=== PATIENT | male | born 1945 | race Caucasian/White ===

== ENCOUNTER 2022-04-11 07:25 | Inpatient (IN) | payer MEDICARE, OTHER, SELFPAY ==
[2022-04-11] VITALS (10 sets, daily range): BP systolic 115–170; BP diastolic 60–100; PULSE 68–83; RESP 16–20; TEMP 36.6–37.7; O2SAT 95–98; BMI 26.8
--- NOTE | 2022-04-11 08:02 | CRLHL7_ITS ---
For Patients: As a result of the Century Cures Act, medical imaging exams and procedure reports are released immediately into your electronic medical record. You may view this report before your referring provider. If you have questions, please contact your health care provider. INDICATION: RUQ PAIN COMPARISON: none TECHNIQUE: Real time bronson scale imaging and color Doppler analysis was performed of the right upper quadrant. FINDINGS: Multiple echogenic and shadowing stones are present within the gallbladder along with layering sludge. In addition, there is a 1 cm hyperechoic and shadowing stone within the gallbladder neck. The gallbladder lumen is distended. The gallbladder wall measures 3.5 millimeters. Common bile duct measures 9.5 millimeters. Intrahepatic biliary duct dilation. No intrahepatic mass. No ascites. Pancreas not visualized due to overlying bowel gas. Right kidney normal and measures 12.0 cm. Atherosclerotic changes in the aorta. IVC normal. IMPRESSION: Distended gallbladder with mild gallbladder wall thickening and numerous hyperechoic stones and sludge within the gallbladder lumen including a 1 cm stone in the gallbladder neck. Intrahepatic and extrahepatic biliary duct dilation. Cholecystitis is suspected. Dictated by Mode Aden MD @ 04/11/2022 9:12:48 AM (Electronically Signed)
--- NOTE | 2022-04-11 08:22 | ED_ITS ---
HPI - General Adult General Chief complaint: Abdominal Pain Stated complaint: stomach pain, bloody urine Time Seen by Provider: 04/11/22 07:56 Source: patient Mode of arrival: ambulatory Limitations: no limitations History of Present Illness HPI narrative: [age] year male coming in today complaining of abdominal pain. Pain is located in the epigastric region. Patient states he has had this pain for sever al years. Comes and goes. General last couple of hours and then goes away. He states that he was seen in the hospital 1 time for this in the past and they thought he was having a heart attack but he was not. Looking through his records, this episode appear to have been in September of 2016. He states he has never had an EGD done. He is not on any antacids. He has never had gallbladder surgery. Today he comes in because the pain started 8 last night it has been going on for 12 hours. He did not sleep because it was so uncomfortable. He denies any nausea or vomiting. No fevers or chills. No diarrhea. No urinary symptoms such as increased frequency, urgency or dysuria. He states that in the past sometimes he can put his fingers down his throat and either burp or vomit a little bit and that makes his discomfort better. He denies night sweats, unintentional weight loss. He denies early satiety. He states that when he goes out to eat the risk of the pain coming is greater than when he eats at home. He did go out to eat last night and had macaroni and vegetables he states. His past medical history significant for eczema and a hiatal hernia. He takes no medications. He has never had surgery. Rarely drinks alcohol, no tobacco use. Both parents had a history of coronary artery disease. Related Data Home Medications Medication Instructions Recorded Confirmed No Known Home Medications 04/11/22 04/11/22 Allergies Allergy/AdvReac Type Severity Reaction Status Date / Time Food Sensitivities AdvReac Mild Uncoded 04/11/22 07:41 Review of Systems Status of ROS: Reports: 10 or more systems reviewed and unremarkable except as noted in History and below [facility] Social History Smoking Status: Never smoker Do you use any of these nicotine containing products: None Second hand tobacco smoke exposure: No How often do you have a drink containing alcohol: never How often do you have six or more drinks on one occasion: Never AUDIT-C Alcohol total score: 0 Non-prescribed substance use: denies use service: No Exam Narrative: Exam Narrative: Thin, elderly patient in no acute distress. Alert and oriented. Answers questions appropriately. Mood and affect are appropriate. Thoughts are goal oriented and rational. No tangential or magical thinking noted. Patient speaks in full sentences without needing to catch his breath. Speech is not slurred or pressured. Patient does not appear ill or toxic. Patient is very slightly jaundiced. HEENT: Normocephalic atraumatic. Pupils are equally round reactive to light. Extraocular muscles are intact. Conjunctivae are moist with mild icterus noted. Moist mucous membranes. Posterior pharynx is normal. Neck is soft without any lymphadenopathy or thyromegaly. No masses are appreciated. Cardiovascular: Heart is regular rate and rhythm S1 and S2 are present without any murmurs. Lungs: Clear to auscultation bilaterally no wheezes rhonchi or rales are appreciated. Patient takes deep breaths without any discomfort. Abdomen: Soft and nondistended with normal bowel sounds. No guarding or rebou nd. No masses or organomegaly appreciated. He does have mild epigastric and right upper quadrant discomfort. Extremities: Bilateral lower extremities show trace edema. Skin: Well perfused without any obvious rashes. Const: Vital Signs, click to edit/add: Vital Signs - 24 hr 04/11/22 07:34 04/11/22 08:00 Temperature 97.8 F Pulse Rate [Pulse Oximeter] 83 Respiratory Rate 16 Blood Pressure [Le ft Upper Arm] 170/100 H Pulse Oximetry 97 98 Oxygen Delivery Me thod Room Air Course Course Hospital Course: EKG, read by me, shows normal sinus rhythm with a left axis deviation. Labs showed elevated white count, elevated CRP, elevated LFTs, elevated lipase. Ultrasound results below consistent with gallstones, cholecystitis, and biliary duct dilation. Did discuss with our surgeon Dr. Berger, who recommended treat patient be transferred for an ERCP. Unfortunately we called every [facility] and there were no available beds. In the meantime we did start IV fluids and IV Zosyn. We Therefore proceeded with an MRCP which did not show any common bile duct dilation, knowing that small stones may be missed. At this time Dr. Berger did accept the patient for admission and further management. Vital Signs Vital signs: Initial Vital Signs Temperature 97.8 F 04/11/22 07:34 Temperature Source Temporal Artery Scan 04/11/22 07:34 Pulse Rate 83 04/11/22 07:34 Respiratory Rate 16 04/11/22 07:34 Blood Pressure 170/100 H 04/11/22 07:34 Blood Pressure Mean 123 04/11/22 07:34 Blood Pressure Position Sitting 04/11/22 07:34 Pulse Oximetry 97 04/11/22 07:34 Oxygen Delivery Method 04/11/22 07:34 Vital Signs Temperature 97.8 F 04/11/22 07:34 Pulse Rate 83 04/11/22 07:34 Respiratory Rate 16 04/11/22 07:34 Blood Pressure 170/100 H 04/11/22 07:34 Pulse Oximetry 97 04/11/22 07:34 Oxygen Delivery Method 04/11/22 07:34 Temperature 97.8 F 04/11/22 07:34 Pulse Rate 83 04/11/22 07:34 Respiratory Rate 16 04/11/22 07:34 Blood Pressure 170/100 H 04/11/22 07:34 Pulse Oximetry 98 04/11/22 08:00 Oxygen Delivery Method 04/11/22 07:34 Medical Decision Making MDM Narrative Medical decision making narrative: 76-year-old male with cholecystitis. Patient will be admitted for further management. Lab Data Lab results reviewed: Yes I reviewed the patient's lab results Labs: Lab Results 04/11/22 04/11/22 04/11/22 Range/Units 08:25 08:25 08:25 WBC 15.94 H (4.50-11.00) K/uL RBC 5.01 (4.30-5.90) m/uL Hgb 15.6 (13.5-17.5) gm/dL Hct 46.9 (37.0-53.0) % MCV 94 (80-100) fL MCH 31 (26-34) pg MCHC 33 (32-36) gm/dL RDW Coeff of Balwinder 13.2 (11.5-15.5) % Plt Count 153 (140-440) K/uL Neut % (Auto) 89.2 H (42.0-72.0) % Lymph % (Auto) 1.9 L (20-44) % Wheeler % (Auto) 8.1 (0.0-11.0) % Eos % (Auto) 0.0 (0.0-7.0) % Baso % (Auto) 0.1 (0.0-3.0) % Neut # (Auto) 14.20 H (1.7-7.0) K/uL Lymph # (Auto) 0.30 L (0.90-2.90) K/uL Wheeler # (Auto) 1.30 H (0.00-0.90) K/UL Eos # (Auto) 0.00 (0.00-0.50) K/uL Baso # (Auto) 0.00 (0.00-0.30) K/uL Abs Immat Gran (auto) 0.10 (0.00-0.30) K/uL Imm/Tot Granulo (auto) 0.7 % ESR 53 H (2-15) mm/hr Sodium 137 (135-149) mmol/L Potassium 5.3 H (3.6-5.1) mmol/L Chloride 103 (96-114) mmol/L Carbon Dioxide 26 (20-32) mmol/L BUN 15 (7-30) mg/dL Creatinine 0.5 (0.5-1.5) mg/dL Estimated Creat Clear 65.90 Estimated GFR 106 ml/min Glucose 118 H (60-115) mg/dL Lactate (0.5-1.9) mmol/L Calcium 8.8 (8.4-10.6) mg/dL Total Bilirubin 6.6 H (0.1-1.5) mg/dL Direct Bilirubin 5.0 H (0.0-0.5) mg/dL AST 449 H (12-35) U/L ALT 369 H (4-50) U/L Alkaline Phosphatase 410 H (40-150) U/L Troponin I (0.01-0.04) ng/mL C-Reactive Protein 3.2 H (0.5-1.0) mg/dL Total Protein 8.7 H (6.0-8.3) g/dL Albumin 4.3 (3.3-5.0) g/dL Lipase 4413 H (23-300) U/L Urine Color (Yellow) Urine Appearance (Clear) Urine pH (5.0-8.5) Ur Specific [place] (1.000-1.030) Urine Protein (Negative) Urine Glucose (UA) (Negative) Urine Ketones (Negative) Urine Blood (Negative) Urine Nitrite (Negative) Urine Bilirubin (Negative) Urine Urobilinogen (0.2-1.0) Ur Leukocyte Esterase (Negative) Urine RBC (0-2) Urine WBC (0-5) Ur Squamous Epith Cells (None-Few) Amorphous Sediment (None) Other Sediment (None) Urine Bacteria (None) Urine Mucus (None) SARS-CoV-2 (PCR) (Negative) 04/11/22 04/11/22 04/11/22 Range/Units 08:25 08:25 08:30 WBC (4.50-11.00) K/uL RBC (4.30-5.90) m/uL Hgb (13.5-17.5) gm/dL Hct (37.0-53.0) % MCV (80-100) fL MCH (26-34) pg MCHC (32-36) gm/dL RDW Coeff of Balwinder (11.5-15.5) % Plt Count (140-440) K/uL Neut % (Auto) (42.0-72.0) % Lymph % (Auto) (20-44) % Wheeler % (Auto) (0.0-11.0) % Eos % (Auto) (0.0-7.0) % Baso % (Auto) (0.0-3.0) % Neut # (Auto) (1.7-7.0) K/uL Lymph # (Auto) (0.90-2.90) K/uL Wheeler # (Auto) (0.00-0.90) K/UL Eos # (Auto) (0.00-0.50) K/uL Baso # (Auto) (0.00-0.30) K/uL Abs Immat Gran (auto) (0.00-0.30) K/uL Imm/Tot Granulo (auto) % ESR (2-15) mm/hr Sodium (135-149) mmol/L Potassium (3.6-5.1) mmol/L Chloride (96-114) mmol/L Carbon Dioxide (20-32) mmol/L BUN (7-30) mg/dL Creatinine (0.5-1.5) mg/dL Estimated Creat Clear Estimated GFR ml/min Glucose (60-115) mg/dL Lactate 2.1 H (0.5-1.9) mmol/L Calcium (8.4-10.6) mg/dL Total Bilirubin (0.1-1.5) mg/dL Direct Bilirubin (0.0-0.5) mg/dL AST (12-35) U/L ALT (4-50) U/L Alkaline Phosphatase (40-150) U/L Troponin I < 0.01 L (0.01-0.04) ng/mL C-Reactive Protein (0.5-1.0) mg/dL Total Protein (6.0-8.3) g/dL Albumin (3.3-5.0) g/dL Lipase (23-300) U/L Urine Color Burwell A (Yellow) Urine Appearance Clear (Clear) Urine pH 5.0 (5.0-8.5) Ur Specific [place] >= 1.030 (1.000-1.030) Urine Protein 2+ A (Negative) Urine Glucose (UA) Trace A (Negative) Urine Ketones 1+ A (Negative) Urine Blood 2+ A (Negative) Urine Nitrite Negative (Negative) Urine Bilirubin 3+ A (Negative) Urine Urobilinogen >=8.0 (0.2-1.0) Ur Leukocyte Esterase Negative (Negative) Urine RBC 2-5 A (0-2) Urine WBC 2-5 (0-5) Ur Squamous Epith Cells Few (None-Few) Amorphous Sediment Moderate A (None) Other Sediment FEW YEAST (None) Urine Bacteria Moderate A (None) Urine Mucus Moderate A (None) SARS-CoV-2 (PCR) (Negative) 04/11/22 Range/Units 09:41 WBC (4.50-11.00) K/uL RBC (4.30-5.90) m/uL Hgb (13.5-17.5) gm/dL Hct (37.0-53.0) % MCV (80-100) fL MCH (26-34) pg MCHC (32-36) gm/dL RDW Coeff of Balwinder (11.5-15.5) % Plt Count (140-440) K/uL Neut % (Auto) (42.0-72.0) % Lymph % (Auto) (20-44) % Wheeler % (Auto) (0.0-11.0) % Eos % (Auto) (0.0-7.0) % Baso % (Auto) (0.0-3.0) % Neut # (Auto) (1.7-7.0) K/uL Lymph # (Auto) (0.90-2.90) K/uL Wheeler # (Auto) (0.00-0.90) K/UL Eos # (Auto) (0.00-0.50) K/uL Baso # (Auto) (0.00-0.30) K/uL Abs Immat Gran (auto) (0.00-0.30) K/uL Imm/Tot Granulo (auto) % ESR (2-15) mm/hr Sodium (135-149) mmol/L Potassium (3.6-5.1) mmol/L Chloride (96-114) mmol/L Carbon Dioxide (20-32) mmol/L BUN (7-30) mg/dL Creatinine (0.5-1.5) mg/dL Estimated Creat Clear Estimated GFR ml/min Glucose (60-115) mg/dL Lactate (0.5-1.9) mmol/L Calcium (8.4-10.6) mg/dL Total Bilirubin (0.1-1.5) mg/dL Direct Bilirubin (0.0-0.5) mg/dL AST (12-35) U/L ALT (4-50) U/L Alkaline Phosphatase (40-150) U/L Troponin I (0.01-0.04) ng/mL C-Reactive Protein (0.5-1.0) mg/dL Total Protein (6.0-8.3) g/dL Albumin (3.3-5.0) g/dL Lipase (23-300) U/L Urine Color (Yellow) Urine Appearance (Clear) Urine pH (5.0-8.5) Ur Specific [place] (1.000-1.030) Urine Protein (Negative) Urine Glucose (UA) (Negative) Urine Ketones (Negative) Urine Blood (Negative) Urine Nitrite (Negative) Urine Bilirubin (Negative) Urine Urobilinogen (0.2-1.0) Ur Leukocyte Esterase (Negative) Urine RBC (0-2) Urine WBC (0-5) Ur Squamous Epith Cells (None-Few) Amorphous Sediment (None) Other Sediment (None) Urine Bacteria (None) Urine Mucus (None) SARS-CoV-2 (PCR) Negative SARS-CoV-2 (Negative) Imaging Data MRCP: Attestation: I have reviewed the pertinent imaging results. Radiologist's impression: TECHNIQUE: MRI of the abdomen was performed with the following sequences: Coronal, axial, and sagittal T2 without fat saturation, axial in and opposed phase, coronal 2D and 3D MRCP series. COMPARISON: Abdominal ultrasound from 04/11/2022. FINDINGS: Lower chest: Large hiatal hernia, with the majority of the stomach herniated above the diaphragmatic hiatus and organoaxial volvulus of the stomach. Liver: The signal intensity is normal. No significant dropout between in- and opposed phase to suggest steatosis. No T2 hyperintense lesions. Mild intrahepatic biliary dilation. Gallbladder and bile ducts: The gallbladder is hydropic and contains innumerable small T2 filling defects, compatible with gallstones. No wall thickening. Inflam matory changes surround the gallbladder and a small amount of fluid tracks along the right inferior hepatic lobe. Filling defect in the gallbladder neck could be an impacted stone. The cystic duct and common bile duct are normal in caliber. The common bile duct measures approximately 3-4 mm (14/33). No focal stricture or filling defects to suggest choledocholithiasis. Spleen: Unremarkable. Small splenule along the anterior spleen. Pancreas: The pancreas appears mildly atrophic and shows areas of fatty atrophy. The pancreatic duct is normal in caliber. Tiny T2 hyperintense foci adjacent to the main pancreatic duct (14/27) could be dilated side branches. Adrenal glands: Unremarkable. No nodules. Kidneys and Ureters: Normal size. Small cortical T2 hyperintense lesions are suggestive of cysts. No hydronephrosis. Lymph Nodes and Retroperitoneum: Unremarkable. Vasculature: Unremarkable. GI tract: Included segments are normal in caliber. Peritoneum/Abdominal Wall: Unremarkable. No free air or free fluid. Bones: No abnormal marrow signal. IMPRESSION: 1. Hydropic gallbladder with innumerable gallstones and surrounding inflammatory changes, concerning for acute cholecystitis in the appropriate clinical setting. 2. Normal caliber common bile duct without stricture or findings to suggest choledocholithiasis. 3. 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 US - abdomen: Attestation: I have reviewed the pertinent imaging results. Radiologist's impression: Real time bronson scale imaging and color Doppler analysis was performed of the right upper quadrant. FINDINGS: Multiple echogenic and shadowing stones are present within the gallbladder along with layering sludge. In addition, there is a 1 cm hyperechoic and shadowing stone within the gallbladder neck. The gallbladder lumen is distended. The gallbladder wall measures 3.5 millimeters. Common bile duct measures 9.5 millimeters. Intrahepatic biliary duct dilation. No intrahepatic mass. No ascites. Pancreas not visualized due to overlying bowel gas. Right kidney normal and measures 12.0 cm. Atherosclerotic changes in the aorta. IVC normal. IMPRESSION: Distended gallbladder with mild gallbladder wall thickening and numerous hyperechoic stones and sludge within the gallbladder lumen including a 1 cm stone in the gallbladder neck. Intrahepatic and extrahepatic biliary duct dilation. Cholecystitis is suspected. Discharge Plan Discharge Patient Disposition: Admitted As Inpatient Condition: Stable Prescriptions: No Action No Known Home Medications Follow Up/Referrals: Mode Luo MD [Primary Care Provider] -
[2022-04-11 08:41] LABS: Lactate* 2.1 mmol/L (0.5-1.9)
[2022-04-11 08:42] LABS: Basophils Percent Auto 0.1 % (0.0-3.0); Hematocrit 46.9 % (37.0-53.0); Hemoglobin* 15.6 gm/dL (13.5-17.5); Immature Granulocytes Pct Auto 0.7 %; Lymphocytes Percent Auto 1.9 % (20-44); Mean Corpuscular HGB Conc 33 gm/dL (32-36); Mean Corpuscular Hemoglobin 31 pg (26-34); Mean Corpuscular Volume 94 fL (80-100); Monocytes Percent Auto 8.1 % (0.0-11.0); Neutrophils Percent Auto 89.2 % (42.0-72.0); Platelet Count* 153 K/uL (140-440); RDW Coefficient of Variation % 13.2 % (11.5-15.5); Red Blood Count 5.01 m/uL (4.30-5.90); White Blood Count* 15.94 K/uL (4.50-11.00)
[2022-04-11 08:45] LABS: Slide Review Reflex No
[2022-04-11 08:57] LABS: Appearance Urine Clear (Clear); Bilirubin Urine 3+ (Negative); Blood Urine 2+ (Negative); Color Urine Orange (Yellow); Glucose Urine Trace (Negative); Ketones Urine 1+ (Negative); Leukocyte Esterase Urine Negative (Negative); Nitrite Urine Negative (Negative); Protein Urine 2+ (Negative); Specific Gravity Urine >= 1.030 (1.000-1.030); Urobilinogen Urine >=8.0 (0.2-1.0)
[2022-04-11 08:58] LABS: Amorphous Sediment Urine Moderate; Bacteria Urine Moderate; Mucus Urine Moderate; Other Sediment Urine FEW YEAST; Squamous Epithelial Cell Urine Few (None-Few)
[2022-04-11 09:08] LABS: Albumin* 4.3 g/dL (3.3-5.0); Chloride* 103 mmol/L (96-114); Sodium* 137 mmol/L (135-149)
[2022-04-11 09:09] LABS: Potassium* 5.3 mmol/L (3.6-5.1)
[2022-04-11 09:11] LABS: Creatinine* 0.5 mg/dL (0.5-1.5); Estimated Glomerular Filt Rate 106 ml/min
[2022-04-11 09:12] LABS: Alanine Aminotransferase* 369 U/L (4-50); Alkaline Phosphatase* 410 U/L (40-150); Aspartate Amino Transferase* 449 U/L (12-35); Bilirubin Total* 6.6 mg/dL (0.1-1.5); Blood Urea Nitrogen* 15 mg/dL (7-30); Calcium* 8.8 mg/dL (8.4-10.6); Carbon Dioxide* 26 mmol/L (20-32); Glucose* 118 mg/dL (60-115); Total Protein* 8.7 g/dL (6.0-8.3)
[2022-04-11 09:15] LABS: C Reactive Protein* 3.2 mg/dL (0.5-1.0)
[2022-04-11 09:26] LABS: Erythrocyte SedimentationRate* 53 mm/hr (2-15)
[2022-04-11 09:51] LABS: Lipase* 4413 U/L (23-300)
[2022-04-11] MEDS: 0.9 % SODIUM CHLORIDE 1000 ml 1,000 ML IV ×2 (10:20→17:21)
[2022-04-11 10:23] LABS: SARS PCR* Negative SARS-CoV-2 (Negative)
--- NOTE | 2022-04-11 10:23 | ED.NURSE ---
IV in right ac not infusing or flushing. IV dc'd and new IV placed in right hand without difficulty.
[2022-04-11 10:24] LABS: Troponin I* < 0.01 ng/mL (0.01-0.04)
--- NOTE | 2022-04-11 10:25 | CRLHL7_ITS ---
For Patients: As a result of the Century Cures Act, medical imaging exams and procedure reports are released immediately into your electronic medical record. You may view this report before your referring provider. If you have questions, please contact your health care provider. INDICATION: Gallstones. TECHNIQUE: MRI of the abdomen was performed with the following sequences: Coronal, axial, and sagittal T2 without fat saturation, axial in and opposed phase, coronal 2D and 3D MRCP series. COMPARISON: Abdominal ultrasound from 04/11/2022. FINDINGS: Lower chest: Large hiatal hernia, with the majority of the stomach herniated above the diaphragmatic hiatus and organoaxial volvulus of the stomach. Liver: The signal intensity is normal. No significant dropout between in- and opposed phase to suggest steatosis. No T2 hyperintense lesions. Mild intrahepatic biliary dilation. Gallbladder and bile ducts: The gallbladder is hydropic and contains innumerable small T2 filling defects, compatible with gallstones. No wall thickening. Inflammatory changes surround the gallbladder and a small amount of fluid tracks along the right inferior hepatic lobe. Filling defect in the gallbladder neck could be an impacted stone. The cystic duct and common bile duct are normal in caliber. The common bile duct measures approximately 3-4 mm (14/33). No focal stricture or filling defects to suggest choledocholithiasis. Spleen: Unremarkable. Small splenule along the anterior spleen. Pancreas: The pancreas appears mildly atrophic and shows areas of fatty atrophy. The pancreatic duct is normal in caliber. Tiny T2 hyperintense foci adjacent to the main pancreatic duct (14/27) could be dilated side branches. Adrenal glands: Unremarkable. No nodules. Kidneys and Ureters: Normal size. Small cortical T2 hyperintense lesions are suggestive of cysts. No hydronephrosis. Lymph Nodes and Retroperitoneum: Unremarkable. Vasculature: Unremarkable. GI tract: Included segments are normal in caliber. Peritoneum/Abdominal Wall: Unremarkable. No free air or free fluid. Bones: No abnormal marrow signal. IMPRESSION: 1. Hydropic gallbladder with innumerable gallstones and surrounding inflammatory changes, concerning for acute cholecystitis in the appropriate clinical setting. 2. Normal caliber common bile duct without stricture or findings to suggest choledocholithiasis. 3. 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 Dictated by Stevie Salgado MD @ 04/11/2022 1:27:48 PM (Electronically Signed)
[2022-04-11] MEDS: PIPERACILLIN/TAZOBACTAM 3.375 GM in 0.9 % SODIUM CHLORIDE Mini-bag 100 ML IVPB ×3 (10:33→22:28)
--- NOTE | 2022-04-11 15:12 | P.IMHP_ITS ---
Hospitalist- H&P: HPI History of Present Illness Date Seen: 04/11/22 Chief complaint: stomach pain, bloody urine Narrative: Karlos Aguilar is a 76 year old male who presented to the ED for evaluation of epigastric abdominal pain. He endorsed nausea and vomiting. Denies chest pain, fever, sob. In the ED Abdominal US showed Distended gallbladder with mild gallbladder wall thickening and numerous hyperechoic stones and sludge within the gallbladder lumen including a 1 cm stone in the gallbladder neck. Intrahepatic and extrahepatic biliary duct dilation. Cholecystitis is suspected.MRCP Hydropic gallbladder with innumerable gallstones and surrounding inflammatory changes, concerning for acute cholecystitis in the appropriate clinical setting. Normal caliber common bile duct without stricture or findings to suggest choledocholithiasis. 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 Notable labs in ED included WBC 15, potassium 5.3, lactate 2.1, Tbili 6.6, AST 449, ALT 369, Alk phos 410, Lipase 4413. UA positive for bacteria. In the ED his case was discussed with General Surgery. He was given IVF, started on zosyn and admitted for further evaluation. Past Medical History: Diagnosis Date ? Allergic rhinitis, cause unspecified ? ? Colon polyp 01/09/2010 ? Colonoscopy 12/2009 polyps repeat in 3 years ? Diverticulosis of colon (without mention of hemorrhage) ? ? Osteoarthrosis, unspecified whether generalized or localized, unspecified site ? Past Surgical History: Procedure Laterality Date ? CIRCUMCISION ? ? ? COLONOSCOPY DIAGNOSTIC ? 02/23/2013 ? Colonoscopy 02/2013 normal repeat in 5 years ? COLONOSCOPY SCREENING ? 01/04/10 ? Colonoscopy 12/2009 polyps repeat in 3 years Allergies Allergen Reactions ? [address] Hives and Rash ? Medications have been reviewed by me and are current to the best of my knowledge and ability. ? Social History Substance Use Topics ? Smoking status: Never Smoker ? Smokeless tobacco: Never Used ? Alcohol use Yes PFSH PFSH Medical History (Updated 04/11/22 @ 16:18 by Valentin Mancera MD) Arthritis Eczema Surgical History (Updated 04/11/22 @ 16:17 by Valentin Mancera MD) S/P routine circumcision Social History (Updated 04/11/22 @ 16:17 by Valentin Mancera MD) Narrative: Patient is retired. He denies smoking Or drinking alcohol. Highest level of school completed/degree received: Professional degree (MD, DANNY, DVM, DDS) Smoking Status: Never smoker Do you use any of these nicotine containing products: None Second hand tobacco smoke exposure: No How often do you have a drink containing alcohol: never How often do you have six or more drinks on one occasion: Never AUDIT-C Alcohol total score: 0 Non-prescribed substance use: denies use Caffeine: No service: No Meds Home Medications and Allergies Home Medications Medication Instructions Recorded Confirmed Type No Known Home Medications 04/11/22 04/11/22 History Allergies Allergy/AdvReac Type Severity Reaction Status Date / Time Food Sensitivities AdvReac Mild Uncoded 04/11/22 07:41 Exam Const: Vital Signs, click to edit/add: Vital Signs - 24 hr 04/11/22 07:34 04/11/22 08:00 Temperature 97.8 F Pulse Rate [Pulse Oximeter] 83 Respiratory Rate 16 Blood Pressure [Le ft Upper Arm] 170/100 H Pulse Oximetry 97 98 Oxygen Delivery Me thod Room Air Hospitalist - H&P: Result Labs Labs: Short CBC 04/11/22 Range/Units 08:25 WBC 15.94 H (4.50-11.00) K/uL Hgb 15.6 (13.5-17.5) gm/dL Hct 46.9 (37.0-53.0) % Plt Count 153 (140-440) K/uL BMP 04/11/22 08:25 Sodium 137 Potassium 5.3 H Chloride 103 Carbon Dioxide 26 BUN 15 Creatinine 0.5 Glucose 118 H Calcium 8.8 Cardiac Enzymes 04/11/22 Range/Units 08:25 Troponin I < 0.01 L (0.01-0.04) ng/mL Liver Function 04/11/22 Range/Units 08:25 Total Bilirubin 6.6 H (0.1-1.5) mg/dL Direct Bilirubin 5.0 H (0.0-0.5) mg/dL AST 449 H (12-35) U/L ALT 369 H (4-50) U/L Alkaline Phosphatase 410 H (40-150) U/L Albumin 4.3 (3.3-5.0) g/dL Urine 04/11/22 Range/Units 08:30 Urine Color [place] A (Yellow) Urine Appearance Clear (Clear) Urine pH 5.0 (5.0-8.5) Ur Specific [place] >= 1.030 (1.000-1.030) Urine Protein 2+ A (Negative) Urine Glucose (UA) Trace A (Negative) Assessment and Plan Assessment and plan (1) Acute gallstone pancreatitis: Status: Acute Plan Karlos Aguilar is a 76 year old male who presented to the ED for evaluation of epigastric abdominal pain. In the ED Abdominal US showed Distended gallbladder with mild gallbladder wall thickening and numerous hyperechoic stones and sludge within the gallbladder lumen including a 1 cm stone in the gallbladder neck. Intrahepatic and extrahepatic biliary duct dilation. Cholecystitis is suspected.MRCP Hydropic gallbladder with innumerable gallstones and surrounding inflammatory changes, concerning for acute cholecystitis in the appropriate clinical setting. Normal caliber common bile duct without stricture or findings to suggest choledocholithiasis. 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 Notable labs in ED included WBC 15, potassium 5.3, lactate 2.1, Tb eva 6.6, AST 449, ALT 369, Alk phos 410, Lipase 4413. UA positive for bacteria. In the ED his case was discussed with General Surgery. He was given IVF, started on zosyn and admitted for further evaluation. Assessment 1. Acute gallstone pancreatitis 2. sepsis secondary to Acute Cholecystitis (fever; leukocytosis, elevated lactate) 3. Presumed acute choledocholithiasis (likely passed stone) 4. Hyperkalemia 5. Lactic acidosis; mild 6. Hyperkalemia 7. R/o UTI 8. Hiatal Hernia with organoaxial volvulus of the stomach 9. Hx of HTN Plan -IVF -continue zosyn -IV PPI -antiemetics -NPO -serial lactate -repeat potassium -Urine culture add on -prn IV hydralazine -Preop evaluation -EKG -AM labs cbc, bmp, liver profile, INR, Lipase -currently not medically optimized for surgery pending electrolyte abnormalities; will need reassesment in AM code-full dvt ppx scd
--- NOTE | 2022-04-11 16:11 | PM.GSCN ---
History of Present Illness Consult details Date Seen: 04/11/22 Consult date: 04/11/22 Narrative: 76-year-old male presented to emergency room with epigastric abdominal pain, and I was asked by Dr. Acosta to see him in consultation. Patient states that he started to experience epigastric pain last night at 8 in the evening. The pain was described as sharp and did not radiate anywhere. He denies any nausea or vomiting. This was the second attack of pain in the last week. Patient states that he had similar episodes of pain in the past several years. The pain was usually brought on by eating at the restaurants, Eating larger meals. He sometimes would relieve his pain by burping or vomiting. Yesterday, he also described having chills. In the emergency room he was found to have an elevated WBC of 15.9. His liver function tests were also elevated. Total bili 6.6, direct bili 5, AST 449, ALT 369, alkaline phosphatase 410, lipase 4413. He underwent a gallbladder ultrasound that showed multiple stones in the gallbladder and a larger stone in the gallbladder neck. The gallbladder wall was measuring at 3-3.5 mm and the gallbladder was described as distended. Patient's common bile duct was described at 9.5 mm. patient then underwent MRCP that showed normal caliber common bile duct. He was incidentally noted to have a large hiatal hernia with are going to axial volvulus of the stomach with majority of the stomach located in the patient's chest. Patient states that his pain is now resolved. Review of Systems Narrative: General: no fevers HENT: no problems swallowing CV: no shortness of breath Resp: no cough GI: See above : + hematuria in the last week Skin: no new rashes Musculoskeletal: no back pain Neuro: no muscle weakness Psyche: no depression, no anxiety PFSH PFSH Medical History (Updated 04/11/22 @ 16:18 by Valentin Mancera MD) Arthritis Eczema Surgical History (Updated 04/11/22 @ 16:17 by Valentin Mancera MD) S/P routine circumcision Social History (Updated 04/11/22 @ 16:17 by Valentin Mancera MD) Narrative: Patient is retired. He denies smoking Or drinking alcohol. Highest level of school completed/degree received: Professional degree (, DANNY, DVM, DDS) Smoking Status: Never smoker Do you use any of these nicotine containing products: None Second hand tobacco smoke exposure: No How often do you have a drink containing alcohol: never How often do you have six or more drinks on one occasion: Never AUDIT-C Alcohol total score: 0 Non-prescribed substance use: denies use Caffeine: No service: No Meds Home Medications and Allergies Home Medications Medication Instructions Recorded Confirmed Type No Known Home Medications 04/11/22 04/11/22 History Allergies Allergy/AdvReac Type Severity Reaction Status Date / Time Food Sensitivities AdvReac Mild Uncoded 04/11/22 07:41 Exam Narrative: Exam Narrative: General appearance: Alert, cooperative, and in no distress. Patient is slightly jaundiced. Pulmonary: Chest symmetric, lungs clear bilaterally Cardiovascular Heart: Regular rate and rhythm, S1, S2, no murmurs/rubs/gallops Gastrointestinal Abdominal: soft, not tender, not distended, negative Barnes sign. Skin: Normal skin color, texture, and turgor. No rashes or lesions. Psychiatric: Alert, cooperative, normal affect. Const: Vital Signs, click to edit/add: Vital Signs - 24 hr 04/11/22 07:34 04/11/22 08:00 04/11/22 08:00 Temperature 97.8 F 97.8 F Pulse Rate [Pulse Oximeter] 83 83 Respiratory Rate 16 16 Blood Pressure [Le ft Upper Arm] 170/100 H 170/100 H Pulse Oximetry 97 98 98 Oxygen Delivery Me thod Room Air Room Air 04/11/22 09:00 04/11/22 10:00 04/11/22 11:00 Temperature Pulse Rate [Pulse Oximeter] Respiratory Rate Blood Pressure [Le ft Upper Arm] 153/86 H 140/76 H 133/74 Pulse Oximetry Oxygen Delivery Me thod 04/11/22 12:00 04/11/22 13:00 Temperature Pulse Rate [Pulse Oximeter] Respiratory Rate Blood Pressure [Le ft Upper Arm] 133/72 131/78 Pulse Oximetry Oxygen Delivery Me thod Results Labs Labs: Abnormal lab results 04/11/22 04/11/22 04/11/22 Range/Units 08:25 08:25 08:25 WBC 15.94 H (4.50-11.00) K/uL Neut % (Auto) 89.2 H (42.0-72.0) % Lymph % (Auto) 1.9 L (20-44) % Neut # (Auto) 14.20 H (1.7-7.0) K/uL Lymph # (Auto) 0.30 L (0.90-2.90) K/uL Jerome # (Auto) 1.30 H (0.00-0.90) K/UL ESR 53 H (2-15) mm/hr Potassium 5.3 H (3.6-5.1) mmol/L Glucose 118 H (60-115) mg/dL Lactate (0.5-1.9) mmol/L Total Bilirubin 6.6 H (0.1-1.5) mg/dL Direct Bilirubin 5.0 H (0.0-0.5) mg/dL AST 449 H (12-35) U/L ALT 369 H (4-50) U/L Alkaline Phosphatase 410 H (40-150) U/L Troponin I (0.01-0.04) ng/mL C-Reactive Protein 3.2 H (0.5-1.0) mg/dL Total Protein 8.7 H (6.0-8.3) g/dL Lipase 4413 H (23-300) U/L Urine Color (Yellow) Urine Protein (Negative) Urine Glucose (UA) (Negative) Urine Ketones (Negative) Urine Blood (Negative) Urine Bilirubin (Negative) Urine RBC (0-2) Amorphous Sediment (None) Urine Bacteria (None) Urine Mucus (None) 04/11/22 04/11/22 04/11/22 Range/Units 08:25 08:25 08:30 WBC (4.50-11.00) K/uL Neut % (Auto) (42.0-72.0) % Lymph % (Auto) (20-44) % Neut # (Auto) (1.7-7.0) K/uL Lymph # (Auto) (0.90-2.90) K/uL Jerome # (Auto) (0.00-0.90) K/UL ESR (2-15) mm/hr Potassium (3.6-5.1) mmol/L Glucose (60-115) mg/dL Lactate 2.1 H (0.5-1.9) mmol/L Total Bilirubin (0.1-1.5) mg/dL Direct Bilirubin (0.0-0.5) mg/dL AST (12-35) U/L ALT (4-50) U/L Alkaline Phosphatase (40-150) U/L Troponin I < 0.01 L (0.01-0.04) ng/mL C-Reactive Protein (0.5-1.0) mg/dL Total Protein (6.0-8.3) g/dL Lipase (23-300) U/L Urine Color [place] A (Yellow) Urine Protein 2+ A (Negative) Urine Glucose (UA) Trace A (Negative) Urine Ketones 1+ A (Negative) Urine Blood 2+ A (Negative) Urine Bilirubin 3+ A (Negative) Urine RBC 2-5 A (0-2) Amorphous Sediment Moderate A (None) Urine Bacteria Moderate A (None) Urine Mucus Moderate A (None) Diabetes panel 04/11/22 Range/Units 08:25 Sodium 137 (135-149) mmol/L Potassium 5.3 H (3.6-5.1) mmol/L Chloride 103 (96-114) mmol/L Carbon Dioxide 26 (20-32) mmol/L BUN 15 (7-30) mg/dL Creatinine 0.5 (0.5-1.5) mg/dL Glucose 118 H (60-115) mg/dL Calcium 8.8 (8.4-10.6) mg/dL AST 449 H (12-35) U/L ALT 369 H (4-50) U/L Alkaline Phosphatase 410 H (40-150) U/L Total Protein 8.7 H (6.0-8.3) g/dL Albumin 4.3 (3.3-5.0) g/dL Calcium panel 04/11/22 Range/Units 08:25 Calcium 8.8 (8.4-10.6) mg/dL Albumin 4.3 (3.3-5.0) g/dL Pituitary panel 04/11/22 Range/Units 08:25 Sodium 137 (135-149) mmol/L Potassium 5.3 H (3.6-5.1) mmol/L Chloride 103 (96-114) mmol/L Carbon Dioxide 26 (20-32) mmol/L BUN 15 (7-30) mg/dL Creatinine 0.5 (0.5-1.5) mg/dL Glucose 118 H (60-115) mg/dL Calcium 8.8 (8.4-10.6) mg/dL Adrenal panel 04/11/22 Range/Units 08:25 Sodium 137 (135-149) mmol/L Potassium 5.3 H (3.6-5.1) mmol/L Chloride 103 (96-114) mmol/L Carbon Dioxide 26 (20-32) mmol/L BUN 15 (7-30) mg/dL Creatinine 0.5 (0.5-1.5) mg/dL Glucose 118 H (60-115) mg/dL Calcium 8.8 (8.4-10.6) mg/dL Total Bilirubin 6.6 H (0.1-1.5) mg/dL AST 449 H (12-35) U/L ALT 369 H (4-50) U/L Alkaline Phosphatase 410 H (40-150) U/L Total Protein 8.7 H (6.0-8.3) g/dL Albumin 4.3 (3.3-5.0) g/dL All other labs normal. Assessment and Plan Assessment and plan (1) Cholecystitis, acute: Status: Acute Plan 76-year-old male admitted to the hospital with epigastric pain that is most likely due to acute cholecystitis and possible gastric volvulus. I discussed with the patient his laboratory and imaging findings. Patient's liver function tests, gallbladder ultrasound and is abdominal MRI are suggestive of acute cholecystitis, possible choledocholithiasis, and gallstone pancreatitis. Patient is currently pain free which would be consistent with passing a gallstone. However, patient was also noted to have a large hiatal hernia with majority of his stomach being in the chest. Patient does not have any other images in our system. There is an abdominal CT report from 2008 the describes a large hiatal hernia with majority of the stomach located in the chest. This would support that his large hiatal hernia is chronic in nature. However, there are no images to compare if this was similar in appearance. I discussed with the patient that most likely his symptoms are caused by acute cholecystitis and biliary colic. However, his large hiatal hernia with organoaxial volvulus could have a similar presentation of epigastric pain. The stomach volvulus should not cause elevated liver function tests and thickened gallbladder wall. Ideally, this patient would benefit from a tertiary care center where his hiatal hernia could be evaluated and possibly repaired at the same time As laparoscopic cholecystectomy. However, we were unable to find a bed at a tertiary center and transfer him from the emergency room. We will attempt to transfer him and next 12 hours. If patient's liver function tests are improving and his lipase is improving, I recommended to proceed with laparoscopic cholecystectomy with intraoperative cholangiogram. However, I did discussed with the patient and his that if laparoscopic cholecystectomy does not improve his pain, and his pain was caused by the gastric volvulus ( which we cannot repair at this hospital), he would potentially need to undergo another surgery. Patient understands the risks. He would like us to try and continue finding a bed to transfer him. We will touch base tomorrow morning to see if we are planning to do laparoscopic cholecystectomy or not. All questions were answered.
[2022-04-11] MEDS: PANTOPRAZOLE SODIUM 40 MG INJ IVP (18:25)
--- NOTE | 2022-04-11 18:48 | PC.NURSE ---
End of Shift Note: Patient was admitted to the unit [id number] from the ER. Has not complained of any pain since arrival to the unit. Admission completed all questions answered. Patient is alert and oriented.
[2022-04-11] MEDS: 0.9 % SODIUM CHLORIDE 1000 ml 1,000 ML 125 ML IV (19:31)
[2022-04-11 20:11] LABS: Lactate* 1.1 mmol/L (0.5-1.9)
[2022-04-11 20:26] LABS: Potassium* 3.9 mmol/L (3.6-5.1)
[2022-04-12 03:00] VITALS: BP 114/61; PULSE 64; RESP 18; TEMP 36.8; O2SAT 98
[2022-04-12] MEDS: 0.9 % SODIUM CHLORIDE 1000 ml 1,000 ML 125 ML IV ×2 (04:02→13:29)
[2022-04-12] MEDS: PIPERACILLIN/TAZOBACTAM 3.375 GM in 0.9 % SODIUM CHLORIDE Mini-bag 100 ML IVPB ×4 (04:48→23:12)
--- NOTE | 2022-04-12 05:34 | PC.NURSE ---
Shift note: Pt has been on NPO prior to pending surgery. Blood glucose level this morning is 88. No pain, N/V/D reported. IV maintained with N/S 1000ml. Urine has dark brown color.
[2022-04-12 07:00] VITALS: BP 130/64; PULSE 68; RESP 20; TEMP 36.9; O2SAT 96
[2022-04-12 07:03] LABS: Basophils Absolute Auto 0.02 K/uL (0.00-0.30); Basophils Percent Auto 0.2 % (0.0-3.0); Eosinophils Absolute Auto 0.09 K/uL (0.00-0.50); Hematocrit 35.1 % (37.0-53.0); Immature Granulocytes Abs Auto 0.07 K/uL (0.00-0.30); Immature Granulocytes Pct Auto 0.8 %; Lymphocytes Percent Auto 10.6 % (20-44); Mean Corpuscular HGB Conc 34 gm/dL (32-36); Mean Corpuscular Hemoglobin 32 pg (26-34); Mean Corpuscular Volume 94 fL (80-100); Monocytes Percent Auto 8.5 % (0.0-11.0); Neutrophils Percent Auto 78.9 % (42.0-72.0); Platelet Count* 205 K/uL (140-440); RDW Coefficient of Variation % 13.6 % (11.5-15.5); Red Blood Count 3.74 m/uL (4.30-5.90); White Blood Count* 9.13 K/uL (4.50-11.00)
[2022-04-12 07:12] LABS: Slide Review Reflex No
[2022-04-12 07:20] LABS: Albumin* 2.8 g/dL (3.3-5.0); Chloride* 111 mmol/L (96-114)
[2022-04-12 07:21] LABS: Potassium* 3.7 mmol/L (3.6-5.1); Sodium* 140 mmol/L (135-149)
[2022-04-12 07:23] LABS: Aspartate Amino Transferase* 167 U/L (12-35); Bilirubin Direct* 5.6 mg/dL (0.0-0.5); Bilirubin Total* 7.2 mg/dL (0.1-1.5); Carbon Dioxide* 24 mmol/L (20-32); Creatinine* 0.6 mg/dL (0.5-1.5); Estimated Glomerular Filt Rate 101 ml/min; Total Protein* 5.9 g/dL (6.0-8.3)
[2022-04-12 07:24] LABS: Alanine Aminotransferase* 200 U/L (4-50); Alkaline Phosphatase* 286 U/L (40-150); Blood Urea Nitrogen* 15 mg/dL (7-30); Calcium* 7.7 mg/dL (8.4-10.6); Glucose* 84 mg/dL (60-115); Lipase* 1824 U/L (23-300)
[2022-04-12] MEDS: PANTOPRAZOLE SODIUM 40 MG INJ IVP (10:47)
[2022-04-12 11:00] VITALS: BP 107/63; PULSE 57; RESP 18; TEMP 37; O2SAT 95
[2022-04-12 15:00] VITALS: BP 126/67; PULSE 60; RESP 20; TEMP 37.1; O2SAT 98
--- NOTE | 2022-04-12 17:07 | PC.NURSE ---
Nurse Note: Patient has been up and ambulating in the hallways several times today. Has not complained of any abdominal pain. Did get his diet advance to full liquids and he is tolerating this. Will continue to monitor.
--- NOTE | 2022-04-12 17:31 | P.IMPN_ITS ---
Progress Note: A&P Assessment and plan (1) Acute gallstone pancreatitis: Problem details: Improving. Likely passed a gallstone. Recommend laparoscopic cholecystectomy. Patient prefers delayed outpatient evaluation and treatment if inpatient transfer is not possible Status: Acute (2) Cholecystitis, acute: Problem details: Monitor to see if he can tolerate a diet. Discharge with oral antibiotics and outpatient followup for laparoscopic cholecystectomy Status: Acute (3) Gastric volvulus: Problem details: Consult with surgeon at [facility] able to perform this surgery as an outpatient if not able to transfer Status: Acute Plan Advanced diet, continue antibiotics IV in the hospital in p.o. as an outpatient Time Spent With Patient Total time spent: Total time spent today is 50 minutes, 30 minutes in coordination of care and discussing with patient and and other providers options for management of acute cholecystitis, gallstone pancreatitis and gastric volvulus Subjective Date Seen: 04/12/22 Interval history: 76-year-old male seen in followup of hospital admission with gallstone pancreatitis and acute cholecystitis. Patient reports feeling much better this morning. Abdominal pain is better. He is anxious to eat. On admission laboratory and imaging studies supported gallstone pancreatitis and acute cholecystitis without choledocholithiasis present. This included MRCP. Incidentally noted was a gastric volvulus. He did not have any history of obstruction symptoms such as vomiting or regurgitation. I informed the patient that the most likely explanation for his recent symptoms is passing a gallstone which had caused pancreatitis from obstruction as well as cholecystitis. Informed him that the standard treatment for this is laparoscopic cholecystectomy. Patient and his both believe that his gastric volvulus is a major concern at this time. He does not want to undergo laparoscopic cholecystectomy without also having his gastric volvulus addressed at the same time. In consulting general surgery here they are not properly equipped to perform this surgery. On that basis attempts were made to transfer the patient to a regional Hospital that might be able to provide this service. This is been unsuccessful. I discussed the patient and his options for management going forward: 1. Laparoscopic cholecystectomy done here and now. Patient declines. 2. Transfer to [facility] or other hospital equipped to provide surgical treatment for gastric volvulus. So far unsuccessful 3. Outpatient management of biliary disease and gastric volvulus. If the patient does well in the next day and if he is able to tolerate a regular diet he could get follow-up with a surgeon at a hospital where he could have a discussion about surgical options for management of both problems. If he were to get recurrent symptoms in the meantime he could go directly to a tertiary care hospital for surgical consultation and management. This is the patient's preferred choice at this time Exam Narrative: Exam Narrative: He is alert and in no distress. He is oriented to his circumstances. He appears comfortable. Eyes are normal. Slight scleral icterus. Oropharynx is normal. Neck is supple out mass or adenopathy. Respirations are clear to auscultation. Cardiovascular: S1, S2, regular rate and rhythm. Abdomen: Bowel sounds are present. Abdomen is soft without tenderness or mass. No ascites. Extremities without significant edema. Const: Vital Signs, click to edit/add: Vital Signs - 24 hr 04/11/22 19:27 04/11/22 23:00 04/12/22 03:00 Temperature 100 F H 98.3 F 98.3 F Pulse Rate [Left R adial] 73 70 64 Respiratory Rate 18 18 18 Blood Pressure [Le ft Arm] 126/71 115/60 114/61 Pulse Oximetry 96 95 98 Oxygen Delivery Me thod Room Air Room Air Room Air 04/12/22 07:00 04/12/22 07:00 04/12/22 11:00 Temperature 98.4 F 98.6 F Pulse Rate [Left R adial] 68 68 57 L Respiratory Rate 20 20 18 Blood Pressure [Le ft Arm] 130/64 107/63 Pulse Oximetry 96 95 Oxygen Delivery Me thod Room Air Room Air 04/12/22 15:00 04/12/22 15:00 Temperature 98.7 F Pulse Rate [Left R adial] 60 60 Respiratory Rate 20 20 Blood Pressure [Le ft Arm] 126/67 Pulse Oximetry 98 Oxygen Delivery Me thod Room Air Documenting provider has reviewed patient's vital signs: yes Labs Labs: Laboratory Results - last 24 hr 04/11/22 04/11/22 04/12/22 20:08 20:08 06:45 WBC 9.13 RBC 3.74 L Hgb 12.0 L Hct 35.1 L MCV 94 MCH 32 MCHC 34 RDW Coeff of Balwinder 13.6 Plt Count 205 Neut % (Auto) 78.9 H Lymph % (Auto) 10.6 L Jenkins % (Auto) 8.5 Eos % (Auto) 1.0 Baso % (Auto) 0.2 Neut # (Auto) 7.20 H Lymph # (Auto) 1.00 Jenkins # (Auto) 0.80 Eos # (Auto) 0.09 Baso # (Auto) 0.02 Abs Immat Gran (auto) 0.07 Imm/Tot Granulo (auto) 0.8 Sodium Potassium 3.9 Chloride Carbon Dioxide BUN Creatinine Estimated Creat Clear Estimated GFR Glucose Lactate 1.1 Venous Lactic Acid (Serial Order) Calcium Total Bilirubin Direct Bilirubin AST ALT Alkaline Phosphatase Total Protein Albumin Lipase 04/12/22 04/12/22 04/12/22 06:45 06:45 06:45 WBC RBC Hgb Hct MCV MCH MCHC RDW Coeff of Balwinder Plt Count Neut % (Auto) Lymph % (Auto) Jenkins % (Auto) Eos % (Auto) Baso % (Auto) Neut # (Auto) Lymph # (Auto) Jenkins # (Auto) Eos # (Auto) Baso # (Auto) Abs Immat Gran (auto) Imm/Tot Granulo (auto) Sodium 140 Potassium 3.7 Chloride 111 Carbon Dioxide 24 BUN 15 Creatinine 0.6 Estimated Creat Clear 65.90 Estimated GFR 101 Glucose 84 Lactate Venous Lactic Acid (Serial Order) Calcium 7.7 L Total Bilirubin 7.2 H Cancelled Direct Bilirubin 5.6 H Cancelled AST 167 H Cancelled ALT 200 H Cancelled Alkaline Phosphatase 286 H Cancelled Total Protein 5.9 L Cancelled Albumin 2.8 L Cancelled Lipase 1824 H 04/12/22 06:45 WBC RBC Hgb Hct MCV MCH MCHC RDW Coeff of Balwinder Plt Count Neut % (Auto) Lymph % (Auto) Jenkins % (Auto) Eos % (Auto) Baso % (Auto) Neut # (Auto) Lymph # (Auto) Jenkins # (Auto) Eos # (Auto) Baso # (Auto) Abs Immat Gran (auto) Imm/Tot Granulo (auto) Sodium Potassium Chloride Carbon Dioxide BUN Creatinine Estimated Creat Clear Estimated GFR Glucose Lactate Venous Lactic Acid (Serial Order) Calcium Total Bilirubin Direct Bilirubin AST ALT Alkaline Phosphatase Total Protein Albumin Lipase Cancelled
[2022-04-12 21:15] VITALS: BP 130/65; PULSE 58; RESP 18; TEMP 36.7; O2SAT 98
[2022-04-12 23:00] VITALS: BP 124/72; PULSE 57; RESP 18; TEMP 36.4; O2SAT 95
[2022-04-13 03:00] VITALS: BP 124/59; PULSE 55; RESP 18; TEMP 36.9; O2SAT 97
[2022-04-13] MEDS: PIPERACILLIN/TAZOBACTAM 3.375 GM in 0.9 % SODIUM CHLORIDE Mini-bag 100 ML IVPB (04:59)
[2022-04-13] MEDS: 0.9 % SODIUM CHLORIDE 250 ml IV (04:59)
[2022-04-13] MEDS: SODIUM CHLORIDE 0.9 % (FLUSH) 10 ML SYRINGE 5 ML IVF ×2 (05:05→09:29)
--- NOTE | 2022-04-13 05:23 | PC.NURSE ---
END OF SHIFT NOTE: PT PLEASANT AND COOPERATIVE WITH [facility]. AMBULATES INDEPENDENTLY WITHIN ROOM. VSS ON RA; AFEBRILE. DENIES CP, SOB, N/V. LSCTA. BLE 2+ PITTING EDEMA.
[2022-04-13 07:08] LABS: Basophils Absolute Auto 0.03 K/uL (0.00-0.30); Basophils Percent Auto 0.4 % (0.0-3.0); Eosinophils Absolute Auto 0.34 K/uL (0.00-0.50); Hematocrit 39.1 % (37.0-53.0); Immature Granulocytes Abs Auto 0.05 K/uL (0.00-0.30); Immature Granulocytes Pct Auto 0.6 %; Lymphocytes Percent Auto 16.9 % (20-44); Mean Corpuscular HGB Conc 33 gm/dL (32-36); Mean Corpuscular Hemoglobin 31 pg (26-34); Mean Corpuscular Volume 94 fL (80-100); Monocytes Percent Auto 7.3 % (0.0-11.0); Neutrophils Absolute Auto 5.96 K/uL (1.7-7.0); Neutrophils Percent Auto 70.8 % (42.0-72.0); Platelet Count* 246 K/uL (140-440); RDW Coefficient of Variation % 13.5 % (11.5-15.5); Red Blood Count 4.15 m/uL (4.30-5.90); White Blood Count* 8.41 K/uL (4.50-11.00)
[2022-04-13 07:10] LABS: Slide Review Reflex No
[2022-04-13 07:21] LABS: Chloride* 107 mmol/L (96-114)
[2022-04-13 07:22] LABS: Albumin* 3.2 g/dL (3.3-5.0); Potassium* 3.4 mmol/L (3.6-5.1); Sodium* 139 mmol/L (135-149)
[2022-04-13 07:25] LABS: Alkaline Phosphatase* 374 U/L (40-150); Aspartate Amino Transferase* 128 U/L (12-35); Bilirubin Direct* 3.3 mg/dL (0.0-0.5); Bilirubin Total* 5.1 mg/dL (0.1-1.5); Blood Urea Nitrogen* 14 mg/dL (7-30); Calcium* 8.2 mg/dL (8.4-10.6); Carbon Dioxide* 26 mmol/L (20-32); Creatinine* 0.6 mg/dL (0.5-1.5); Estimated Glomerular Filt Rate 101 ml/min; Glucose* 82 mg/dL (60-115); Lipase* 869 U/L (23-300); Total Protein* 6.9 g/dL (6.0-8.3)
[2022-04-13 07:26] LABS: Alanine Aminotransferase* 178 U/L (4-50)
[2022-04-13 07:45] VITALS: BP 125/66; PULSE 61; RESP 18; TEMP 36.6; O2SAT 95
--- NOTE | 2022-04-13 08:22 | P.DS_ITS ---
DS: Providers Provider Date Seen: 04/13/22 Date of admission: 04/11/22 15:43 Primary care physician: Mode Luo MD Admitting Clinician: Praneeth Rosario MD Consults: Dr. Mancera, general surgery Attending Physician on discharge: Praneeth Rosario MD Date of Discharge: 04/13/22 DS: Diagnosis Discharge Diagnosis (1) Cholecystitis, acute: Status: Acute Problem details: Monitor to see if he can tolerate a diet. Discharge with oral antibiotics and outpatient followup for laparoscopic cholecystectomy (2) Gastric volvulus: Status: Acute Problem details: Consult with surgeon at [facility] able to perform this surgery as an outpatient if not able to transfer (3) Acute gallstone pancreatitis: Status: Acute Problem details: Improving. Likely passed a gallstone. Recommend laparoscopic cholecystectomy. Patient prefers delayed outpatient evaluation and treatment if inpatient tr ansfer is not possible DS: Summary Hospital Course Hospital Course: 76-year-old male admitted to the hospital with acute onset of abdominal pain. He was evaluated emergency room and found to have elevated lipase and transaminases and bilirubin with imaging showing some gallbladder inflammation, no obstructing stone and incidentally identified gastric volvulus with associated hiatal hernia. Patient does report longstanding history of mild intermittent epigastric symptoms but no history of vomiting or upper gastrointestinal obstruction. Clinically patient was felt to have acute cholecystitis and acute gallstone pancreatitis. He was recommended to undergo laparoscopic cholecystectomy. Patient was quite adamant that he wanted to have his gastric volvulus repaired as he thought it was the primary problem. Our surgeon was unable to perform that procedure here. Patient improved with his symptoms quite quickly and his abnormal laboratory studies improved though have not yet normalized. He has been able to tolerate a normal diet without pain, nausea or vomiting. After a prolonged discussion the decision was made that he would get outpatient followup with surgery to determine the appropriate next steps for management of both his biliary problems as well as his gastric volvulus. Status at Discharge Functional status at discharge: independent ambulation Overall status at discharge: patient is back to baseline Time Spent with Patient Time attestation: Total time spent providing and/or coordinating discharge services: Time spent: Greater than 30 minutes Exam Narrative: Exam Narrative: He is alert and in no distress. I see him after he has had a normal breakfast. Abdomen is soft without tenderness or mass. Const: Vital Signs, click to edit/add: Vital Signs - 24 hr 04/12/22 11:00 04/12/22 15:00 04/12/22 15:00 Temperature 98.6 F 98.7 F Pulse Rate [Left R adial] 57 L 60 60 Respiratory Rate 18 20 20 Blood Pressure [Le ft Arm] 107/63 126/67 Blood Pressure [Ri ght Arm] Pulse Oximetry 95 98 Oxygen Delivery Me thod Room Air Room Air 04/12/22 21:15 04/12/22 23:00 04/12/22 23:00 Temperature 98.0 F 97.6 F Pulse Rate [Left R adial] 58 L 57 L 57 L Respiratory Rate 18 18 18 Blood Pressure [Le ft Arm] 124/72 Blood Pressure [Ri ght Arm] 130/65 Pulse Oximetry 98 95 Oxygen Delivery Me thod Room Air Room Air 04/13/22 03:00 Temperature 98.4 F Pulse Rate [Left R adial] 55 L Respiratory Rate 18 Blood Pressure [Le ft Arm] 124/59 L Blood Pressure [Ri ght Arm] Pulse Oximetry 97 Oxygen Delivery Me thod Room Air Documenting provider has reviewed patient's vital signs: yes DS: Data Data Completed and Pending Completed studies during hospitalization: Right upper quadrant ultrasound, MRCP images sent with patient for outpatient followup. Labs on day of discharge: Labs from last 24 hours 04/13/22 04/13/22 06:45 06:45 WBC 8.41 RBC 4.15 L Hgb 13.0 L Hct 39.1 MCV 94 MCH 31 MCHC 33 RDW Coeff of Balwinder 13.5 Plt Count 246 Neut % (Auto) 70.8 Lymph % (Auto) 16.9 L [place] % (Auto) 7.3 Eos % (Auto) 4.0 Baso % (Auto) 0.4 Neut # (Auto) 5.96 Lymph # (Auto) 1.40 [place] # (Auto) 0.60 Eos # (Auto) 0.34 Baso # (Auto) 0.03 Abs Immat Gran (auto) 0.05 Imm/Tot Granulo (auto) 0.6 Sodium 139 Potassium 3.4 L Chloride 107 Carbon Dioxide 26 BUN 14 Creatinine 0.6 Estimated Creat Clear 65.90 Estimated GFR 101 Glucose 82 Calcium 8.2 L Total Bilirubin 5.1 H Direct Bilirubin 3.3 H AST 128 H ALT 178 H Alkaline Phosphatase 374 H Total Protein 6.9 Albumin 3.2 L Lipase 869 H Discharge Plan Discharge Disposition: Home, Self-Care Date of Admission: 04/11/22 15:43 Attending Provider on Discharge: Martínez Bailey Consulting Providers: Valentin Mancera Primary Care Provider: Mode Luo Condition: Improved Anticipated Discharge Date/Time: 04/13/22 07:59 Discharge Medications: New amoxicillin-pot clavulanate 875-125 mg tablet 1 tab PO BID Qty: 14 0RF omeprazole 20 mg capsule,delayed release(DR/EC) 20 mg PO DAILY Qty: 30 2RF Discharge Orders: Discharge Order (Routine); Ordered 04/13/22 Ordered By: Martínez Bailey Patient Education: General Anesthesia (DC), Laparoscopic Cholecystectomy (DC), Post-Operative Instructions: Laparoscopic Cholecystectomy Additional Instructions: The cause of your abdominal pain and illness this week is almost certainly a gallstone obstructing your common bile duct. The stone has passed and that is why you are feeling better. This caused inflammation of your pancreas and your gallbladder and your liver. That inflammation is better. I am prescribing an antibiotic because you may have an infection in your gallbladder as well. The recommended treatment for this is laparoscopic cholecystectomy, surgery performed through a laparoscope to remove your gallbladder. That procedure can be performed here at [facility]. You are at risk for recurrent problems with gallstones until your gallbladder is removed. We also found that you have a gastric volvulus. You have a hiatal hernia with most of your stomach in your chest. This is a longstanding problem for you. Now your stomach is changing position in your chest and could possibly cause obstruction of the esophagus and stomach. This will cause vomiting and make you unable to swallow. Surgery can treat this problem as well but our surgeon will not perform this procedure here in [place]. See your doctor this week for follow-up of your gastrointestinal problems and referral to a surgeon for appropriate treatment. Activity Level: No Restrictions Discharge Diet: Low Fat/Low Cholesterol Diet Detail: Until you have surgery I recommend avoiding high protein and high fat foods, including fried foods. Eating soft foods might help prevent problems with your gastric volvulus Follow Up Appointments: Mode Luo MD [Primary Care Provider] - Forms: [facility] Info Instructions
[2022-04-13] MEDS: PANTOPRAZOLE SODIUM 40 MG INJ IVP (09:30)
--- NOTE | 2022-04-13 11:53 | PC.NURSE ---
VSS AND AFEBRILE. LS CLEAR. BS ACTIVE AND PASSING GAS. PATIENT TOLERATED REGULAR DIET WITH NO C/O N/V OR ADBOMINAL PAIN. SL DC'D. REVIEWED DC INSTRUCTIONS WITH PATIENT AND HIS . QUESTIONS ANSWERED AND PATIENT DC'D HOME VIA .
== END 2022-04-13 10:05 | disposition home or self-care (01) | DRG 444 ==
LOC: ED 12:40 → MEDSURG 15:16
PROVIDERS: Family Medicine; Surgery; Admitting Provider Hospitalist; Emergency Provider Family Medicine; PCP Family Medicine; Visit Provider Hospitalist
PROC: 0FT44ZZ Resection of Gallbladder, Percutaneous Endoscopic Approach (ICD-10-PCS; CPT 47563; principal; 2022-04-12 07:30)
DX: K80.01 Calculus of gallbladder with acute cholecystitis with obstruction (principal); K85.10 Biliary acute pancreatitis without necrosis or infection; E87.20 Acidosis, unspecified; K44.0 Diaphragmatic hernia with obstruction, without gangrene; K31.89 Other diseases of stomach and duodenum; L30.9 Dermatitis, unspecified; E87.5 Hyperkalemia; I10 Essential (primary) hypertension; R31.9 Hematuria, unspecified
CPT/HCPCS: 36415; 74181; 76705; 80048; 80061; 80076; 81001; 82962; 83605; 83690; 84132; 84484; 85025; 85651; 86140; 87086; 87635; 93005; 94761; 99285; C9113; J2543; J7030; J7050